=== PATIENT | male | born 1950 | race Caucasian/White ===

== ENCOUNTER → 2025-04-05 09:22 | Outpatient (CLI) | payer OTHER, SELFPAY ==
--- NOTE | 2025-04-08 07:53 | DI.NM.S_ITS ---
DATE OF SERVICE: 04/05/2025 Nuclear cardiology myocardial perfusion study. PROCEDURE: Exercise treadmill stress and rest myocardial perfusion imaging with gating to assess ejection fraction and regional wall motion. ORDERING PROVIDER: Lana Deluca MD INDICATIONS: The patient is a 75-year-old male with exertional dyspnea. CARDIAC STRESS: The patient was able to exercise for 4 minutes on a standard Dereje protocol with an additional 1 minute at a reduced rate, suggesting moderate-severely reduced exercise capacity with an MARLENE of +29%. He had a normal heart rate and blood pressure response to exercise, achieving a maximum heart rate of 129 bpm (88% of his predicted maximum). Oximetry at rest was 96% but dropped to 90% at peak exercise. He had no chest discomfort but had limiting dyspnea. His resting ECG is normal and there are no significant ST segment shifts or arrhythmias with stress. At 4 minutes of exercise at a heart rate of 125 bpm, 26.6 millicuries of technetium-99m Myoview was injected and he was imaged 15 minutes later using a gated SPECT acquisition protocol. Earlier in the day while at rest, he had been injected with 10.7 millicuries of technetium-99m Myoview and imaged 15 minutes later, again using a gated SPECT acquisition protocol. FINDINGS: 1. Raw data: There is fairly good myocardial tracer uptake. The lung/heart ratio is normal at 0.24 with a normal TID ratio of 0.77. 2. Quantitated gated SPECT: Post-stress ejection fraction is 79% without any focal wall motion abnormality. The resting ejection fraction is 78% with a normal resting end-diastolic volume of 96 mL. 3. Myocardial perfusion imaging: Post-stress supine images show a fairly normal myocardial perfusion pattern with only a mild defect in the mid inferior wall, consistent with diaphragmatic attenuation, supported by its resolution on the prone images. The resting images show a similar perfusion pattern with minimal improvement in the inferior defect. IMPRESSION: 1. Probable normal myocardial perfusion study for ischemia. 2. Predominantly fixed, slightly reversible mid inferior perfusion defect that resolves on prone imaging, most consistent with diaphragmatic attenuation artifact. There is no compelling evidence for significant ischemia or previous infarction. 3. Normal left ventricular size and systolic function. 4. Moderate-severely reduced exercise capacity with limiting dyspnea and borderline exertional hypoxia but no angina, ECG evidence of ischemia, or any arrhythmias. This would suggest the possibility of intrinsic lung disease but clinical correlation is recommended. Timbo Solomony - FLETCHER/cathy/CHICO doc#: [id number]/job#: [id number] dd: 04/05/2025 16:44:00 dt: 04/05/2025 18:13:00 DICTATING MD/COPIES TO: Julian Kate MD; Lana Deluca MD COPIES MNE: [place];
== END ==
PROVIDERS: PCP Specialist; Referring Provider Specialist; Visit Provider Specialist
DX: R06.02 Shortness of breath (principal)
CPT/HCPCS: 78452; 93017; A9502